=== PATIENT | male | born 1955 | race Caucasian/White ===

== ENCOUNTER 2019-06-10 04:18 | Inpatient (IN) ==
[2019-06-10] MEDS ORDERED: RAPID SEQUENCE INDUCTION BAG ONE (04:23)
[2019-06-10] MEDS ORDERED: PROPOFOL IV EMULSION 10 MG/ML 100 ML VIAL IV ONE (04:38)
[2019-06-10] MEDS ORDERED: ACETAMINOPHEN 1000 MG/100 ML IV IV ONE (05:07)
[2019-06-10] MEDS ORDERED: ACETAMINOPHEN 1,000 MG/100 ML VIAL IV STA (05:09)
[2019-06-10] MEDS ORDERED: LEVAQUIN 750 MG/150 ML IV ONE (05:10)
[2019-06-10] MEDS ORDERED: D5W IV ONE (05:10)
[2019-06-10] MEDS ORDERED: CEFEPIME 2,000 MG/20 ML VIAL ONE (05:12)
[2019-06-10] MEDS ORDERED: VANCOMYCIN HCL 1,000 MG in SODIUM CHLORIDE 0.9% 500 ML IV STA (05:14)
[2019-06-10] MEDS ORDERED: CEFEPIME 2,000 MG/20 ML VIAL IV STA (05:14)
[2019-06-10] MEDS ORDERED: VANCOMYCIN CONSULT ACTIVE PRN (05:14)
[2019-06-10] MEDS ORDERED: VANCOMYCIN HCL 1,000 MG/270 ML BAG IV STA (05:14)
[2019-06-10] MEDS ORDERED: LEVOFLOXACIN/D5W 750 MG/150 ML BAG IV SCH (05:15)
[2019-06-10 05:24] LABS: Hematocrit (blood only) 44.7 % (42-52); Hemoglobin 14.9 g/dL (14.0-18.0); Mean Corpuscular Hemoglobin 31.2 pg (25-34); Mean Corpuscular Hgb Conc 33.3 g/dL (32-36); Mean Corpuscular Volume 93.7 fL (80-100); Mean Platelet Volume 11.4 fL (7.4-10.4); Platelet Count 245 K/uL (130-400); RDW Coefficient of Variation 12.9 % (11.5-14.5); RDW Standard Deviation 44.4 fL (36.4-46.3); Red Blood Count 4.77 M/uL (4.7-6.1)
[2019-06-10 05:37] LABS: Partial Thromboplastin Time 28.2 Seconds (21.0-31.0); Prothrombin Time 10.6 Seconds (9.0-12.0)
[2019-06-10 05:46] LABS: Basophils # (auto) 0.03 K/uL (0-0.2); Basophils % (auto) 0.2 %; Eosinophils # (auto) 0.14 K/uL (0-0.5); Eosinophils % (auto) 1.1 %; Immature Granulocytes # (auto) 0.49 K/uL (0.00-0.02); Immature Granulocytes % (auto) 3.7 %; Lymphocytes # (auto) 6.21 K/uL (1.2-3.4); Lymphocytes % (auto) 47.4 %; Monocytes # (auto) 0.24 K/uL (0.11-0.59); Monocytes % (auto) 1.8 %; Neutrophils # (auto) 5.99 K/uL (1.4-6.5); Neutrophils % (auto) 45.8 %
[2019-06-10 05:52] LABS: Alanine Aminotransferase 107 U/L (12-78); Albumin Level 3.3 gm/dl (3.4-5.0); Alkaline Phosphatase 71 U/L (45-117); Aspartate Aminotransferase 223 U/L (15-37); BUN Creatinine Ratio 11.9 (10-20); Bilirubin,Total 0.5 mg/dl (0.2-1); Blood Urea Nitrogen 22 mg/dl (7-18); Calcium 7.6 mg/dl (8.5-10.1); Carbon Dioxide 18 mmol/L (21-32); Chloride 102 mmol/L (98-107); Est GFR (African American) 43.1; Est GFR (Non-African American) 37.2; Globulin 3.2 gm/dl (2.5-4.0); Glucose 464 mg/dl (70-99); Magnesium 2.7 mg/dl (1.8-2.4); Potassium 3.5 mmol/L (3.5-5.1); Sodium 137 mmol/L (136-145); Total Protein 6.5 gm/dl (6.4-8.2)
[2019-06-10] MEDS ORDERED: INSULIN REGULAR 250 UNITS in SODIUM CHLORIDE 0.9% 247.5 ML IV SCH (06:00)
[2019-06-10 06:15] LABS: Beta-Hydroxybutyrate 2.45 mg/dl (0.2-2.81)
[2019-06-10 06:20] LABS: Base Excess ABG -9.7 mEq/L (-9-1.8); HCO3 ABG 20 mmol/L (19-24); Oxygen Saturation ABG 99.8 % (90-95); PCO2 ABG 60 mmHg (35-46); PO2 ABG 321 mmHg (80-95)
[2019-06-10 06:21] LABS: Allen Test Pos (Pos)
[2019-06-10 06:22] LABS: pH ABG 7.14 (7.35-7.45)
[2019-06-10] MEDS ORDERED: STAT IV Infusion **Titration per Protocol STA (06:24)
[2019-06-10] MEDS ORDERED: SUCCINYLCHOLINE CHLORIDE 20 MG/ML 10 ML VIAL IV ONE (06:25)
[2019-06-10] MEDS ORDERED: VECURONIUM BROMIDE 10 MG VIAL IV ONE (06:25)
[2019-06-10] MEDS ORDERED: ETOMIDATE 2 MG/ML 20 ML VIAL IV ONE (06:25)
[2019-06-10] MEDS ORDERED: fentaNYL citrate 100 MCG/2 ML CARP IV ONE (06:25)
--- NOTE | 2019-06-10 06:25 | XRay Report ---
XR chest 1V portable CLINICAL HISTORY: Sepsis COMPARISON STUDY: No previous studies for comparison. FINDINGS: The tip of the endotracheal tube is 5.6 cm above the tamiko. Tip of nasogastric tube is bel ow the lower aspect of this image but at least within the body of the stomach. Tip of right internal jugular central line projects over the distal SVC. There is no pneumothorax. No pleural effusion is i dentified. Interstitial thickening and extensive bilateral airspace opacities are present. IMPRESSION: 1. Satisfactory positioning of lines and tubes. 2. Interstitial thickening and extensive bilateral airspace opacities which favor an infectious etiol ogy. Pulmonary edema could appear similar but is considered less likely. ACT 112: Negative or not required by law. Electronically signed by: Alvino Barfield M.D. 06/10/2019 6:23 AM
[2019-06-10] MEDS ORDERED: propofoL 1,000 MG/100 ML VIAL IV SCH (06:28)
[2019-06-10] MEDS ORDERED: fentaNYL citrate 100 MCG/2 ML VIAL ONE ×3 (06:39→09:38)
[2019-06-10] MEDS ORDERED: MIDAZOLAM HCL 1 MG/ML 2ML VIAL ONE ×5 (06:39→09:39)
[2019-06-10] MEDS ORDERED: NiCARDipine HCL INJ 2.5 MG/ML 10 ML AMP ONE (06:39)
[2019-06-10] MEDS ORDERED: HEPARIN (PORCINE) 1000 UNIT/ML 10 ML (CATH LAB USE ONLY) ONE ×3 (06:39→09:26)
[2019-06-10] MEDS ORDERED: NITROGLYCERIN/D5W 100MCG/ML 20ML SYR ONE (06:40)
--- NOTE | 2019-06-10 07:05 | Critical Care Consultation ---
Date of Consultation June 10, 2019 Assessment & Plan (1) Admitted to intensive care unit: Reason Critically Ill: 64-year-old male presenting to the emergency department with complaints of shortness of breath requiring emergent endotracheal intubation with significant bradycardia and hypoxia with concerns for possible COVID-19 infection with remains report of shortness of breath and cough for the past 24 to 48 hours. NEURO - * CAM ICU: Unable to assess secondary to sedation. * Sedation: Currently on Propofol. Attempt to transition to PRN pressors when in the unit if tolerated. CARDIAC/VASCULAR - * Bradycardia: * Possibly 2/2 severe hypoxia in the setting of rapid pulmonary edema and AR DS picture. * Improved heart rate with oxygenation after intubation. * Acute STEMI: * EKG status post intubation and resuscitation demonstrates acute STEMI. * Patient taken emergently to the catheterization suite. * Please refer to my attending's dictation for continued management. * Monitor on telemetry. RESPIRATORY - * Acute respiratory failure with hypoxia and hypercapnia: * Patient's only complaint on presentation was shortness of breath. Per roommate, the patient had been short of breath and with a cough for 24 to 48 hours. Apparently, the roommate had called and asked if the patient could be tested for coronavirus. * Keeping this in mind, and given current concerns for community spread in this area, patient was emergently intubated which did improve her oxygenation as well as heart rate. * Continue with aggressive arts net protocol settings pending ABGs. * Serial ABGs. GI/NUTRITION - * OG tube in place. RENAL/LYTES - * ARTUR: * Judicious use of fluids in setting of picture of volume overload versus ARDS. * IVF: - * Kennedy in place - Strict I&Os. ENDO - * Unknown history of diabetes, however patient presents hyperglycemic. * BSGs per unit protocol. ISS --> gtt per unit policy. HEME - * Stable H&H. * Leukocytosis noted. This is encouraging as we would anticipate a leukopenia and a CO VID patient. ID - * Patient covered with broad-spectrum antibiotics in the emergency department including cefepime, vancomycin, Levaquin. * May be prudent to continue pending differentiation from possible sources of pulmonary filtrates. LINES/IV ACCESS - * PIVs x1 * RIGHT IJ * RIGHT radial arterial line * Kennedy catheter. * ET tube DVT PROPHYLAXIS - * Defer until after catheterization. * SCDs I have personally spent 45 minutes of critical care time in the direct management of this patient. This is a life/limb threatening event. This includes time spent evaluating patient, direct bedside care, chart review, placing orders, interpretation of diagnostic studies, discussion with consultants, patient, and family members, as well as other required patient management activities. This time is exclusive of all separately billable procedures, and teaching time and separate from and in addition to any other critical care service time. Thank you for allowing us to participate in the care of this patient. Please refer to my attending physician's documentation for any further recommendations. (2) Acute respiratory failure with hypoxia and hypercarbia: (3) Respiratory acidosis: (4) Multifocal pneumonia: Supervising Physician Co-Signing Physician Notes I was advised of this patient by Viktoriya Jj Please refer to my documentation regarding the care of this patient. History of Present Illness History of Present Illness I was called to the emergency department by attending ER physician as patient presented acutely hypoxic and bradycardic. Per historical information, the patient's remained had contacted the hospital yesterday and asked "for a test for the virus." He had worsening shortness of breath and cough and was brought to the emergency department where he was significantly hypoxic and bradycardic. A CODE BLUE was initially called as the patient did significantly bradycardia down and was near arrest. He was successfully intubated by emergency department physician, however he did require replacement tube secondary to a rupture in the cuff. Central line and arterial lines were placed. Patient accepted to ICU for admission for further evaluation and management. Patient History Social History Feels Safe at Home: Yes Smoking Status: Never smoker Review of Systems Review of Systems: Unobtainable due to cognitive status Physical Exam Physical Exam: VITAL SIGNS - Vital signs and nursing notes were reviewed. GENERAL - 64-year-old male stated age. Intubated and sedated. HEAD - NC/AT. EYES - PERRL with EOMI bilaterally. Sclera anicteric. Palpebral conjunctiva pink and moist with no injection noted. EARS - No deformities of external structures noted on gross examination bilaterally. NOSE - Midline and without cyanosis. No epistaxis or purulent drainage noted. MOUTH/OROPHARYNX - ET Tube in place. Without perioral cyanosis. Buccal mucosa pink and moist and without leukoplakia. NECK - Supple to palpation. LUNGS - Chest wall symmetric without accessory muscle use, intercostals retractions, or central cyanosis. Normal vesicular breath sounds CTA B/L. No wheezes, rales, or rhonchi appreciated. CARDIAC - RRR with S1/S2. No murmur, rubs, or gallops appreciated. ABDOMEN - Abdominal contour flat without pulsations or visible masses. BS normoactive all four quadrants. No tenderness, palpable masses, hepatosplenomegaly, or ascites noted. EXTREMITIES - No clubbing or peripheral cyanosis. No pretibial edema present. +3/5 radial and dorsalis pedis pulses palpated throughout. NEUROLOGIC - No focal neurological deficits. Unable to fully assess secondary to state of sedation. Results & Data Results & Data ([facility]) Vital Signs (Past 12 Hours) Vital Signs Pulse Resp BP Pulse Ox 06/10/19 06:48 100 H 26 H 151/118 H 98 06/10/19 06:45 100 H 26 H 151/113 H 98 06/10/19 06:31 106 H 27 H 99 06/10/19 06:30 105 H 24 146/114 H 99 06/10/19 06:15 111 H 20 166/124 H 99 06/10/19 06:01 115 H 20 99 06/10/19 06:00 117 H 20 176/127 H 99 06/10/19 05:45 115 H 20 167/122 H 99 06/10/19 05:31 123 H 97 06/10/19 05:30 123 H 23 168/122 H 99 06/10/19 05:15 114 H 20 159/119 H 97 06/10/19 05:00 62 15 145/86 H 95 06/10/19 04:58 49 L 16 119/75 88 L 06/10/19 04:55 67 22 97 06/10/19 04:49 48 L 24 139/61 86 L 06/10/19 04:30 41 L 19 75 L 06/10/19 04:29 56 L 31 H 75 L 06/10/19 04:27 54 L 29 H 77 L 06/10/19 04:21 50 L 30 H 122/80 71 L Coding Level of Care Code Critical Care 1st 30-74 mins Diagnoses Admitted to intensive care unit Z78.9 Acute respiratory failure with hypoxia and hypercarbia J96.01; J96.02 Respiratory acidosis E87.2 Multifocal pneumonia J18.9 Time Spent (min) 45
--- NOTE | 2019-06-10 07:07 | Procedure Note ---
Procedure Note Date of Service June 10, 2019 Procedure: Internal Jugular Central Line Placement Attending: Dr. Wayne APC: Beto Jj PA-C Indication: Central Drug Administration, Poor Venous Access, Multiple Lab Draws Necessary, etc. Anesthesia: Lidocaine 1% Emergent consent implied in the setting of poor peripheral access and need for ongoing management in the respiratory failure patient with concerns for possible COVID-19. A time-out was completed verifying correct patient, procedure, site, positioning, and implants(s) or special equipment if applicable. Patients RIGHT Neck was cleansed and draped in the typical sterile fashion using Chloraprep. The Internal Jugular Vein and Carotid Artery were identified using ultrasound. The superficial tissue was anesthetized using 3.0 mL of 1% lidocaine without epinephrine under direct visualization with the ultrasound. After adequate anesthetization was achieved, the Internal Jugular vein was cannulated under direct ultrasound guidance using an introducer needle on a syringe. Good venous blood return was maintained prior to removal of syringe from introducer needle. Using Seldinger Technique, a guide wire was advanced through the introducer needle without resistance. The introducer needle was removed and ultrasound images were obtained of the guide wire within the Internal Jugular Vein and saved to the patients medical record. The dilator was advanced to the vessel without resistance. The dilator was exchanged for the triple lumen catheter which was advanced into the vessel without resistance. The guide wire was removed intact from the catheter without issue. Claves were placed on each catheter tip with confirmation of good blood flow from each lumen. Each port was easily flushed with sterile saline. The catheter was placed at 16 cm and sut[address] in place. BioPatch was applied to the catheter and a sterile Tegaderm dressing was applied over the catheter with careful attention to sterility. Patient tolerated procedure well. No immediate complications were met. Post procedure x-ray was completed, placement was appropriate and no pneumothorax was noted. Images obtained are saved for permanent record Procedural Ultrasound Guidance: Procedure Date: 06/10/2019 Indication: Poor peripheral access, multiple medications Attending: Dr. Chatman APC: Beto Jj PA-C Artery AND Vein visualized: YES Compressible Vein: YES Guidewire or Short Catheter seen in vein prior to dilation: YES Line confirmed in Vein with ultrasound: YES Images obtained are saved for permanent record. Coding CPT Codes Tubes, Drains, and Vasc Access - Tubes, Drains, and Vasc Access: [id number] Place catheter in vein superior or inferior vena cava ([id number]) Tubes, Drains, and Vasc Access - Tubes, Drains, and Vasc Access: [id number] Ultrasound Guidance For Vascular ([id number]) [facility] [place] Procedure Codes (Charges) Tubes, Drains, and Vasc Access Procedure 1: Tubes, Drains, and Vasc Access: [id number] Place catheter in vein superior or inferior vena cava Procedure 2: Tubes, Drains, and Vasc Access: [id number] Ultrasound Guidance For Vascular
[2019-06-10 07:08] LABS: Influenza A virus by PCR Neg for Influ A (Neg); Influenza B virus by PCR Neg for Influ B (Neg)
--- NOTE | 2019-06-10 07:11 | Procedure Note ---
Procedure Note Date of Service June 10, 2019 Procedure: Arterial Line Placement Attending: Dr. Chatman APC: Beto Jj PA-C Indication: Monitoring on Pressors Anesthesia: None Emergent consent implied in the setting of poor and high BP readings and need for frequent blood pressure monitoring, frequent lab draws, etc. A time-out was completed verifying correct patient, procedure, site, positioning, and implant(s) or special equipment if applicable. Allens test was performed to ensure adequate perfusion. Patients RIGHT wrist was prepped and draped in the usual sterile fashion. Ultrasound guidance was used to aid needle placement. A 20g Arrow arterial line was introduced into the RIGHT Radial artery. Catheter was threaded, and the needle was removed with appropriate blood return. Good waveform was observed. The patient tolerated the procedure well. Confirmation of placement with ultrasound. Blood Loss: Minimal Complications: None Procedural Ultrasound Guidance: Procedure Date: 06/10/2019 Indication: ABGs, Frequent lab draws, Pressure monitoring Attending: Dr. Chatman APC: Beto Jj PA-C Artery Identified: YES Line confirmed in Artery with ultrasound: YES Complications: NONE Patient tolerated procedure: WELL Coding CPT Codes Tubes, Drains, and Vasc Access - Tubes, Drains, and Vasc Access: [id number] Place Catheter In Artery ([id number]) [facility] [place] Codes (Charges) Tubes, Drains, and Vasc Access Procedure 3: Tubes, Drains, and Vasc Access: [id number] Place Catheter In Artery
--- NOTE | 2019-06-10 07:15 | Emergency Department Note ---
History of Present Illness General Chief complaint: Shortness of Breath/Dyspnea Stated complaint: COUGH,SOB Time Seen by Provider: 06/10/19 04:20 Source: patient, RN notes reviewed, old records reviewed and other (roommate) Mode of arrival: ambulatory Limitations: altered mental status and physical limitation History of Present Illness Provider complaint: Shortness of breath Onset (ago): hour(s) 2 Maximum Pain Intensity: 8 Current Pain Intensity: 8 Quality: + aching Relieved By: + none Exacerbated By: + none This is a 64-year-old male who was brought in by the emergency department by his roommate. Upon arrival to the emergency department the patient is unable to talk and is gasping for air. He has hypoxic with his O2 sat at 68. He is gasping for air and asking for help. Spoke with daughter Chandrika ([place]) [phone] Past Med/Surg History Social History Feels Safe at Home: Yes Smoking Status: Never smoker Review of Systems A total of 10 systems reviewed and were otherwise negative Physical Exam Vital Signs Vital Signs - 24 hr 06/10/19 04:21 06/10/19 04:27 06/10/19 04:29 Rectal Temperature - Monitor Source 2 Pulse Rate 50 L 54 L 56 L Pulse Rate from SpO2 Sensor 55 L Respiratory Rate 30 H 29 H 31 H Respiratory Effort / Characteristics Gasping/Agonal Labored Respiratory Depth Shallow Blood Pressure 122/80 Blood Pressure Mean 94 137 Pulse Oximetry 71 L 77 L 75 L Oxygen Delivery Method Room Air Mechanical Vent Mechanical Vent Fraction of Inspired Oxygen 100 100 Sepsis Recent Fever Within 48 Hours No Sepsis New/Unexplained Change in Mental Status No Sepsis Action Taken by Nursing No Action Required 06/10/19 04:30 06/10/19 04:49 06/10/19 04:55 Rectal Temperature - Monitor Source 2 35.5 C L Pulse Rate 41 L 48 L 67 Pulse Rate from SpO2 Sensor Respiratory Rate 19 24 22 Respiratory Effort / Characteristics Respiratory Depth Blood Pressure 139/61 Blood Pressure Mean 66 Pulse Oximetry 75 L 86 L 97 Oxygen Delivery Method Mechanical Vent Mechanical Vent Fraction of Inspired Oxygen 100 100 100 Sepsis Recent Fever Within 48 Hours Sepsis New/Unexplained Change in Mental Status Sepsis Action Taken by Nursing 06/10/19 04:58 06/10/19 05:00 04/03/20 05:15 Rectal Temperature - Monitor Source 2 36.0 C L 36.1 C L 36.2 C L Pulse Rate 49 L 62 114 H Pulse Rate from SpO2 Sensor 117 H Respiratory Rate 16 15 20 Respiratory Effort / Characteristics Respiratory Depth Blood Pressure 119/75 145/86 H 159/119 H Blood Pressure Mean 86 90 123 Pulse Oximetry 88 L 95 97 Oxygen Delivery Method Mechanical Vent Mechanical Vent Mechanical Vent Fraction of Inspired Oxygen 100 100 100 Sepsis Recent Fever Within 48 Hours Sepsis New/Unexplained Change in Mental Status Sepsis Action Taken by Nursing 06/10/19 05:30 06/10/19 05:31 06/10/19 05:45 Rectal Temperature - Monitor Source 2 35.2 C L 35.2 C L 35.4 C L Pulse Rate 123 H 123 H 115 H Pulse Rate from SpO2 Sensor 125 H 123 H 117 H Respiratory Rate 23 20 Respiratory Effort / Characteristics Respiratory Depth Blood Pressure 168/122 H 167/122 H Blood Pressure Mean 134 132 Pulse Oximetry 99 97 99 Oxygen Delivery Method Mechanical Vent Mechanical Vent Mechanical Vent Fraction of Inspired Oxygen 100 100 100 Sepsis Recent Fever Within 48 Hours Sepsis New/Unexplained Change in Mental Status Sepsis Action Taken by Nursing 06/10/19 06:00 06/10/19 06:01 06/10/19 06:15 Rectal Temperature - Monitor Source 2 35.5 C L 35.5 C L 35.8 C L Pulse Rate 117 H 115 H 111 H Pulse Rate from SpO2 Sensor 117 H 115 H 111 H Respiratory Rate 20 20 20 Respiratory Effort / Characteristics Respiratory Depth Blood Pressure 176/127 H 166/124 H Blood Pressure Mean 141 138 Pulse Oximetry 99 99 99 Oxygen Delivery Method Mechanical Vent Mechanical Vent Fraction of Inspired Oxygen 100 100 Sepsis Recent Fever Within 48 Hours Sepsis New/Unexplained Change in Mental Status Sepsis Action Taken by Nursing 06/10/19 06:30 06/10/19 06:31 06/10/19 06:43 Rectal Temperature - Monitor Source 2 35.8 C L 35.8 C L Pulse Rate 105 H 106 H Pulse Rate from SpO2 Sensor 106 H 106 H Respiratory Rate 24 27 H Respiratory Effort / Characteristics Respiratory Depth Blood Pressure 146/114 H Blood Pressure Mean 122 Pulse Oximetry 99 99 Oxygen Delivery Method Mechanical Vent Fraction of Inspired Oxygen Sepsis Recent Fever Within 48 Hours Sepsis New/Unexplained Change in Mental Status Sepsis Action Taken by Nursing 06/10/19 06:45 06/10/19 06:48 06/10/19 07:06 Rectal Temperature - Monitor Source 2 35.9 C L 35.9 C L Pulse Rate 100 H 100 H 112 H Pulse Rate from SpO2 Sensor 100 H 99 H Respiratory Rate 26 H 26 H 20 Respiratory Effort / Characteristics Respiratory Depth Blood Pressure 151/113 H 151/118 H 185/115 H Blood Pressure Mean 122 127 Pulse Oximetry 98 98 95 Oxygen Delivery Method Mechanical Vent Fraction of Inspired Oxygen Sepsis Recent Fever Within 48 Hours Sepsis New/Unexplained Change in Mental Status Sepsis Action Taken by Nursing GENERAL: Patient is a ill-appearing male in acute distress, mottled in appearance HEAD: Normocephalic atraumatic EYES: Ocular movements intact pupils equal and react to light OROPHARYNX mucous membranes are moist no exudates present no erythema or edema present NECK: Supple no nuchal rigidity CHEST: Good equal expansion LUNGS: diffuse crackles bilat CARDIAC: Normal S1 and S2 ABDOMEN: Soft nontender no guarding BACK: No CVA tenderness EXTREMITIES: No pain upon palpation normal muscle strength in all groups no clubbing cyanosis or edema NEURO: Pt unable to answer questions Procedures Intubation Time out performed: Yes sedative: Etomidate (20) Mg Given: 20 paralytic: Succinylcholine Mg Given: 200 Laryngoscope: fiber optic video scope ET Tube Size: 7.5 ET Tube Uncuffed: Yes Tube Secured Depth (cm): 24 Tube Secured Location: lips Tube Placement Confirmation: visualized tube passing through cords, equal breath sounds bilaterally, no breath sounds over epigastrium and confirmation by capnometry Patient Tolerated Procedure: well and no complications Additional Comments: I performed the procedure; immediate improvement in symptoms Course Administered Medications Levofloxacin/Dextrose (Levaquin/D5w) 750 mg in 150 mls @ 100 mls/hr IV Q24H [facility] Stop: 06/17/19 05:14 Last Admin: 06/10/19 05:20 Dose: 100 mls/hr Documented by: [id number] Discontinued Medications Acetaminophen (Ofirmev) Confirm Administered Dose 1,000 mg IV .STK-MED ONE Stop: 06/10/19 05:08 Last Admin: 06/10/19 06:21 Dose: Not Given Documented by: [id number] Cefepime HCl (Maxipime) Confirm Administered Dose 2,000 mg .ROUTE .STK-MED ONE Stop: 06/10/19 05:13 Last Admin: 06/10/19 06:21 Dose: Not Given Documented by: [id number] Acetaminophen (Ofirmev) 1,000 mg in 100 mls @ 400 mls/hr IV NOW STA Stop: 06/10/19 05:23 Last Infusion: 06/10/19 05:25 Dose: 0 mls/hr Documented by: [id number] Admin: 06/10/19 05:10 Dose: 400 mls/hr Documented by: [id number] Vancomycin HCl 1,000 mg/ (Sodium Chloride) 520 mls @ 125 mls/hr IV NOW STA Stop: 06/10/19 09:23 Last Admin: 06/10/19 05:20 Dose: 125 mls/hr Documented by: [id number] Vancomycin HCl (Vancomycin Hcl) 1,000 mg in 270 mls @ 125 mls/hr IV NOW STA; Protocol Stop: 06/10/19 07:23 Last Admin: 06/10/19 06:32 Dose: 125 mls/hr Documented by: [id number] Cefepime HCl (Maxipime) 2,000 mg in 20 mls @ 5 mls/min IV NOW STA; Protocol Stop: 06/10/19 05:17 Last Admin: 06/10/19 05:20 Dose: 5 mls/min Documented by: [id number] Levofloxacin/Dextrose (Levaquin/D5w) Confirm Administered Dose 750 mg IV .STK- MED ONE Stop: 06/10/19 05:11 Last Admin: 06/10/19 06:21 Dose: Not Given Documented by: [id number] Miscellaneous () Confirm Administered Dose 1 ea .ROUTE .STK-MED ONE Stop: 06/10/19 04:24 Last Admin: 06/10/19 06:32 Dose: 1 ea Documented by: [id number] Propofol (Diprivan) Confirm Administered Dose 1,000 mg IV .STK-MED ONE Stop: 06/10/19 04:39 Last Admin: 06/10/19 06:21 Dose: Not Given Documented by: [id number] Critical Care Time I have personally spent greater than 90 minutes of critical care time in the direct management of this patient. This includes bedside care, interpretation of diagnostic studies, and testing, discussion with consultants, patient, and family members, and other required patient management activities. This 90 minutes is in excess of all separately billable procedures. Medical Decision Making Differential Diagnosis Sepsis, UTI, pneumonia, metabolic, electrolyte abnormalities, cardiac sources, intracerebral event, toxicologic, neurologic, as well as other pathologies. Medical Records Attestation: I reviewed the patient's medical records. Home Medications Current Medication List: was personally reviewed by me Laboratory Data Attestation: I reviewed the patient's lab results. Result diagrams: 06/10/19 05:15 06/10/19 05:15 Lab Results 06/10/19 06/10/19 06/10/19 Range/Units 05:15 05:15 05:15 WBC 13.10 H (4.8-10.8) K/uL RBC 4.77 (4.7-6.1) M/uL Hgb 14.9 (14.0-18.0) g/dL POC Hgb (14.0-18.0) g/dl Hct 44.7 (42-52) % POC Hct (42-52) % MCV 93.7 (80-100) fL MCH 31.2 (25-34) pg MCHC 33.3 (32-36) g/dL RDW Std Deviation 44.4 (36.4-46.3) fL RDW Coeff of Garret 12.9 (11.5-14.5) % Plt Count 245 (130-400) K/uL MPV 11.4 H (7.4-10.4) fL Immature Gran % (Auto) 3.7 % Neut % (Auto) 45.8 % Lymph % (Auto) 47.4 % Surry % (Auto) 1.8 % Eos % (Auto) 1.1 % Baso % (Auto) 0.2 % Immature Gran # (Auto) 0.49 H (0.00-0.02) K/uL Neut # (Auto) 5.99 (1.4-6.5) K/uL Lymph # (Auto) 6.21 H (1.2-3.4) K/uL Surry # (Auto) 0.24 (0.11-0.59) K/uL Eos # (Auto) 0.14 (0-0.5) K/uL Baso # (Auto) 0.03 (0-0.2) K/uL Blood Smear Review PT 10.6 (9.0-12.0) Seconds INR 1.0 (0.9-1.1) APTT 28.2 (21.0-31.0) Seconds PTT Ratio 1.0 Activ Coag Time Kaolin (94-140) SECONDS POC pH (7.35-7.45) POC pCO2 (35-46) mmHg POC pO2 (80-95) mmHg POC HCO3 (19-24) jerri/L POC Total CO2 (24-31) mmol/L POC Base Excess (-9-1.8) jerri/L ABG pH (7.35-7.45) ABG pCO2 (35-46) mmHg ABG pO2 (80-95) mmHg ABG HCO3 (19-24) mmol/L ABG O2 Saturation (90-95) % ABG Base Excess (-9-1.8) mEq/L Leonardo Test (Pos) VBG pH (7.36-7.41) Barometric Pressure mm/Hg Oxygen Given POC Sodium (135-144) mmol/L Sodium 137 (136-145) mmol/L POC Potassium (3.3-5.0) mmol/L Potassium 3.5 (3.5-5.1) mmol/L Chloride 102 (98-107) mmol/L Carbon Dioxide 18 L (21-32) mmol/L Anion Gap 17.0 H (3-11) BUN 22 H (7-18) mg/dl Creatinine 1.88 H (0.6-1.4) mg/dl Est Cr Clr Drug Dosing Not Reportable Est GFR ( Amer) 43.1 Est GFR (Non-Af Amer) 37.2 BUN/Creatinine Ratio 11.9 (10-20) Glucose 464 H* (70-99) mg/dl Lactate (0.4-2.0) mmol/L Calcium 7.6 L (8.5-10.1) mg/dl Phosphorus (2.5-4.9) mg/dl Magnesium 2.7 H (1.8-2.4) mg/dl Total Bilirubin 0.5 (0.2-1) mg/dl AST 223 H (15-37) U/L ALT 107 H (12-78) U/L Alkaline Phosphatase 71 (45-117) U/L Troponin I 5.430 H* (0-0.045) ng/ml Total Protein 6.5 (6.4-8.2) gm/dl Albumin 3.3 L (3.4-5.0) gm/dl Globulin 3.2 (2.5-4.0) gm/dl Albumin/Globulin Ratio 1.0 (0.9-2) Beta-Hydroxybutyric Acd 2.45 (0.2-2.81) mg/dl Procalcitonin (0-0.5) ng/ml Adenovirus (PCR) (NotDetected) B. pertussis DNA (PCR) (NotDetected) B.parapertussis DNA PCR (NotDetected) C. pneumoniae DNA (PCR) (NotDetected) Coronavirus OC43 (PCR) (NotDetected) Coronavirus HKU1 (PCR) (NotDetected) Coronavirus 229E (PCR) (NotDetected) Coronavirus NL63 (PCR) (NotDetected) Human Metapneumovir PCR (NotDetected) Influenza Type A (PCR) (NotDetected) Influenza Type B (PCR) (NotDetected) M. pneumoniae (PCR) (NotDetected) Parainfluenza 1 (PCR) (NotDetected) Parainfluenza 2 (PCR) (NotDetected) Parainfluenza 3 (PCR) (NotDetected) Parainfluenza 4 (PCR) (NotDetected) RSV (PCR) (NotDetected) Entero/Rhino (PCR) (NotDetected) 06/10/19 06/10/19 06/10/19 Range/Units 05:15 05:15 05:15 WBC (4.8-10.8) K/uL RBC (4.7-6.1) M/uL Hgb (14.0-18.0) g/dL POC Hgb (14.0-18.0) g/dl Hct (42-52) % POC Hct (42-52) % MCV (80-100) fL MCH (25-34) pg MCHC (32-36) g/dL RDW Std Deviation (36.4-46.3) fL RDW Coeff of Garret (11.5-14.5) % Plt Count (130-400) K/uL MPV (7.4-10.4) fL Immature Gran % (Auto) % Neut % (Auto) % Lymph % (Auto) % Surry % (Auto) % Eos % (Auto) % Baso % (Auto) % Immature Gran # (Auto) (0.00-0.02) K/uL Neut # (Auto) (1.4-6.5) K/uL Lymph # (Auto) (1.2-3.4) K/uL Surry # (Auto) (0.11-0.59) K/uL Eos # (Auto) (0-0.5) K/uL Baso # (Auto) (0-0.2) K/uL Blood Smear Review PT (9.0-12.0) Seconds INR (0.9-1.1) APTT (21.0-31.0) Seconds PTT Ratio Activ Coag Time Kaolin (94-140) SECONDS POC pH (7.35-7.45) POC pCO2 (35-46) mmHg POC pO2 (80-95) mmHg POC HCO3 (19-24) jerri/L POC Total CO2 (24-31) mmol/L POC Base Excess (-9-1.8) jerri/L ABG pH (7.35-7.45) ABG pCO2 (35-46) mmHg ABG pO2 (80-95) mmHg ABG HCO3 (19-24) mmol/L ABG O2 Saturation (90-95) % ABG Base Excess (-9-1.8) mEq/L Leonardo Test (Pos) VBG pH (7.36-7.41) Barometric Pressure mm/Hg Oxygen Given POC Sodium (135-144) mmol/L Sodium (136-145) mmol/L POC Potassium (3.3-5.0) mmol/L Potassium (3.5-5.1) mmol/L Chloride (98-107) mmol/L Carbon Dioxide (21-32) mmol/L Anion Gap (3-11) BUN (7-18) mg/dl Creatinine (0.6-1.4) mg/dl Est Cr Clr Drug Dosing Est GFR ( Amer) Est GFR (Non-Af Amer) BUN/Creatinine Ratio (10-20) Glucose (70-99) mg/dl Lactate 9.3 H* (0.4-2.0) mmol/L Calcium (8.5-10.1) mg/dl Phosphorus 8.5 H (2.5-4.9) mg/dl Magnesium (1.8-2.4) mg/dl Total Bilirubin (0.2-1) mg/dl AST (15-37) U/L ALT (12-78) U/L Alkaline Phosphatase (45-117) U/L Troponin I (0-0.045) ng/ml Total Protein (6.4-8.2) gm/dl Albumin (3.4-5.0) gm/dl Globulin (2.5-4.0) gm/dl Albumin/Globulin Ratio (0.9-2) Beta-Hydroxybutyric Acd (0.2-2.81) mg/dl Procalcitonin 0.05 (0-0.5) ng/ml Adenovirus (PCR) (NotDetected) B. pertussis DNA (PCR) (NotDetected) B.parapertussis DNA PCR (NotDetected) C. pneumoniae DNA (PCR) (NotDetected) Coronavirus OC43 (PCR) (NotDetected) Coronavirus HKU1 (PCR) (NotDetected) Coronavirus 229E (PCR) (NotDetected) Coronavirus NL63 (PCR) (NotDetected) Human Metapneumovir PCR (NotDetected) Influenza Type A (PCR) (NotDetected) Influenza Type B (PCR) (NotDetected) M. pneumoniae (PCR) (NotDetected) Parainfluenza 1 (PCR) (NotDetected) Parainfluenza 2 (PCR) (NotDetected) Parainfluenza 3 (PCR) (NotDetected) Parainfluenza 4 (PCR) (NotDetected) RSV (PCR) (NotDetected) Entero/Rhino (PCR) (NotDetected) 06/10/19 06/10/19 06/10/19 Range/Units 05:15 05:30 06:22 WBC (4.8-10.8) K/uL RBC (4.7-6.1) M/uL Hgb (14.0-18.0) g/dL POC Hgb (14.0-18.0) g/dl Hct (42-52) % POC Hct (42-52) % MCV (80-100) fL MCH (25-34) pg MCHC (32-36) g/dL RDW Std Deviation (36.4-46.3) fL RDW Coeff of Garret (11.5-14.5) % Plt Count (130-400) K/uL MPV (7.4-10.4) fL Immature Gran % (Auto) % Neut % (Auto) % Lymph % (Auto) % Surry % (Auto) % Eos % (Auto) % Baso % (Auto) % Immature Gran # (Auto) (0.00-0.02) K/uL Neut # (Auto) (1.4-6.5) K/uL Lymph # (Auto) (1.2-3.4) K/uL Surry # (Auto) (0.11-0.59) K/uL Eos # (Auto) (0-0.5) K/uL Baso # (Auto) (0-0.2) K/uL Blood Smear Review PT (9.0-12.0) Seconds INR (0.9-1.1) APTT (21.0-31.0) Seconds PTT Ratio Activ Coag Time Kaolin (94-140) SECONDS POC pH (7.35-7.45) POC pCO2 (35-46) mmHg POC pO2 (80-95) mmHg POC HCO3 (19-24) jerri/L POC Total CO2 (24-31) mmol/L POC Base Excess (-9-1.8) jerri/L ABG pH 7.14 L* (7.35-7.45) ABG pCO2 60 H (35-46) mmHg ABG pO2 321 H (80-95) mmHg ABG HCO3 20 (19-24) mmol/L ABG O2 Saturation 99.8 H (90-95) % ABG Base Excess -9.7 L (-9-1.8) mEq/L Leonardo Test Pos (Pos) VBG pH 7.08 L (7.36-7.41) Barometric Pressure 728.4 mm/Hg Oxygen Given 100% POC Sodium (135-144) mmol/L Sodium (136-145) mmol/L POC Potassium (3.3-5.0) mmol/L Potassium (3.5-5.1) mmol/L Chloride (98-107) mmol/L Carbon Dioxide (21-32) mmol/L Anion Gap (3-11) BUN (7-18) mg/dl Creatinine (0.6-1.4) mg/dl Est Cr Clr Drug Dosing Est GFR ( Amer) Est GFR (Non-Af Amer) BUN/Creatinine Ratio (10-20) Glucose (70-99) mg/dl Lactate (0.4-2.0) mmol/L Calcium (8.5-10.1) mg/dl Phosphorus (2.5-4.9) mg/dl Magnesium (1.8-2.4) mg/dl Total Bilirubin (0.2-1) mg/dl AST (15-37) U/L ALT (12-78) U/L Alkaline Phosphatase (45-117) U/L Troponin I (0-0.045) ng/ml Total Protein (6.4-8.2) gm/dl Albumin (3.4-5.0) gm/dl Globulin (2.5-4.0) gm/dl Albumin/Globulin Ratio (0.9-2) Beta-Hydroxybutyric Acd (0.2-2.81) mg/dl Procalcitonin (0-0.5) ng/ml Adenovirus (PCR) Not Detected (NotDetected) B. pertussis DNA (PCR) Not Detected (NotDetected) B.parapertussis DNA PCR Not Detected (NotDetected) C. pneumoniae DNA (PCR) Not Detected (NotDetected) Coronavirus OC43 (PCR) Not Detected (NotDetected) Coronavirus HKU1 (PCR) Not Detected (NotDetected) Coronavirus 229E (PCR) Not Detected (NotDetected) Coronavirus NL63 (PCR) Not Detected (NotDetected) Human Metapneumovir PCR Not Detected (NotDetected) Influenza Type A (PCR) Not Detected (NotDetected) Influenza Type B (PCR) Not Detected (NotDetected) M. pneumoniae (PCR) Not Detected (NotDetected) Parainfluenza 1 (PCR) Not Detected (NotDetected) Parainfluenza 2 (PCR) Not Detected (NotDetected) Parainfluenza 3 (PCR) Not Detected (NotDetected) Parainfluenza 4 (PCR) Not Detected (NotDetected) RSV (PCR) Not Detected (NotDetected) Entero/Rhino (PCR) Not Detected (NotDetected) 06/10/19 06/10/19 06/10/19 Range/Units 06:22 07:36 07:48 WBC (4.8-10.8) K/uL RBC (4.7-6.1) M/uL Hgb (14.0-18.0) g/dL POC Hgb 15.3 (14.0-18.0) g/dl Hct (42-52) % POC Hct 45 (42-52) % MCV (80-100) fL MCH (25-34) pg MCHC (32-36) g/dL RDW Std Deviation (36.4-46.3) fL RDW Coeff of Garret (11.5-14.5) % Plt Count (130-400) K/uL MPV (7.4-10.4) fL Immature Gran % (Auto) % Neut % (Auto) % Lymph % (Auto) % Surry % (Auto) % Eos % (Auto) % Baso % (Auto) % Immature Gran # (Auto) (0.00-0.02) K/uL Neut # (Auto) (1.4-6.5) K/uL Lymph # (Auto) (1.2-3.4) K/uL Surry # (Auto) (0.11-0.59) K/uL Eos # (Auto) (0-0.5) K/uL Baso # (Auto) (0-0.2) K/uL Blood Smear Review PT (9.0-12.0) Seconds INR (0.9-1.1) APTT (21.0-31.0) Seconds PTT Ratio Activ Coag Time Kaolin 246 H (94-140) SECONDS POC pH 7.27 L (7.35-7.45) POC pCO2 49 H (35-46) mmHg POC pO2 263 H (80-95) mmHg POC HCO3 22 (19-24) jerri/L POC Total CO2 24 (24-31) mmol/L POC Base Excess -5.0 (-9-1.8) jerri/L ABG pH (7.35-7.45) ABG pCO2 (35-46) mmHg ABG pO2 (80-95) mmHg ABG HCO3 (19-24) mmol/L ABG O2 Saturation (90-95) % ABG Base Excess (-9-1.8) mEq/L Leonardo Test (Pos) VBG pH (7.36-7.41) Barometric Pressure mm/Hg Oxygen Given POC Sodium 140 (135-144) mmol/L Sodium (136-145) mmol/L POC Potassium 3.0 L (3.3-5.0) mmol/L Potassium (3.5-5.1) mmol/L Chloride (98-107) mmol/L Carbon Dioxide (21-32) mmol/L Anion Gap (3-11) BUN (7-18) mg/dl Creatinine (0.6-1.4) mg/dl Est Cr Clr Drug Dosing Est GFR ( Amer) Est GFR (Non-Af Amer) BUN/Creatinine Ratio (10-20) Glucose (70-99) mg/dl Lactate (0.4-2.0) mmol/L Calcium (8.5-10.1) mg/dl Phosphorus (2.5-4.9) mg/dl Magnesium (1.8-2.4) mg/dl Total Bilirubin (0.2-1) mg/dl AST (15-37) U/L ALT (12-78) U/L Alkaline Phosphatase (45-117) U/L Troponin I (0-0.045) ng/ml Total Protein (6.4-8.2) gm/dl Albumin (3.4-5.0) gm/dl Globulin (2.5-4.0) gm/dl Albumin/Globulin Ratio (0.9-2) Beta-Hydroxybutyric Acd (0.2-2.81) mg/dl Procalcitonin (0-0.5) ng/ml Adenovirus (PCR) (NotDetected) B. pertussis DNA (PCR) (NotDetected) B.parapertussis DNA PCR (NotDetected) C. pneumoniae DNA (PCR) (NotDetected) Coronavirus OC43 (PCR) (NotDetected) Coronavirus HKU1 (PCR) (NotDetected) Coronavirus 229E (PCR) (NotDetected) Coronavirus NL63 (PCR) (NotDetected) Human Metapneumovir PCR (NotDetected) Influenza Type A (PCR) Neg for Influ A (NotDetected) Influenza Type B (PCR) Neg for Influ B (NotDetected) M. pneumoniae (PCR) (NotDetected) Parainfluenza 1 (PCR) (NotDetected) Parainfluenza 2 (PCR) (NotDetected) Parainfluenza 3 (PCR) (NotDetected) Parainfluenza 4 (PCR) (NotDetected) RSV (PCR) (NotDetected) Entero/Rhino (PCR) (NotDetected) 06/10/19 06/10/19 06/10/19 Range/Units 08:04 08:04 08:27 WBC (4.8-10.8) K/uL RBC (4.7-6.1) M/uL Hgb (14.0-18.0) g/dL POC Hgb 13.3 L 13.6 L (14.0-18.0) g/dl Hct (42-52) % POC Hct 39 L 40 L (42-52) % MCV (80-100) fL MCH (25-34) pg MCHC (32-36) g/dL RDW Std Deviation (36.4-46.3) fL RDW Coeff of Garret (11.5-14.5) % Plt Count (130-400) K/uL MPV (7.4-10.4) fL Immature Gran % (Auto) % Neut % (Auto) % Lymph % (Auto) % Surry % (Auto) % Eos % (Auto) % Baso % (Auto) % Immature Gran # (Auto) (0.00-0.02) K/uL Neut # (Auto) (1.4-6.5) K/uL Lymph # (Auto) (1.2-3.4) K/uL Surry # (Auto) (0.11-0.59) K/uL Eos # (Auto) (0-0.5) K/uL Baso # (Auto) (0-0.2) K/uL Blood Smear Review PT (9.0-12.0) Seconds INR (0.9-1.1) APTT (21.0-31.0) Seconds PTT Ratio Activ Coag Time Kaolin 296 H (94-140) SECONDS POC pH 7.26 L 7.30 L (7.35-7.45) POC pCO2 53 H 47 H (35-46) mmHg POC pO2 72 L 54 L (80-95) mmHg POC HCO3 24 23 (19-24) jerri/L POC Total CO2 26 25 (24-31) mmol/L POC Base Excess -3.0 -3.0 (-9-1.8) jerri/L ABG pH (7.35-7.45) ABG pCO2 (35-46) mmHg ABG pO2 (80-95) mmHg ABG HCO3 (19-24) mmol/L ABG O2 Saturation (90-95) % ABG Base Excess (-9-1.8) mEq/L Leonardo Test (Pos) VBG pH (7.36-7.41) Barometric Pressure mm/Hg Oxygen Given POC Sodium 138 141 (135-144) mmol/L Sodium (136-145) mmol/L POC Potassium 2.9 L 3.3 (3.3-5.0) mmol/L Potassium (3.5-5.1) mmol/L Chloride (98-107) mmol/L Carbon Dioxide (21-32) mmol/L Anion Gap (3-11) BUN (7-18) mg/dl Creatinine (0.6-1.4) mg/dl Est Cr Clr Drug Dosing Est GFR ( Amer) Est GFR (Non-Af Amer) BUN/Creatinine Ratio (10-20) Glucose (70-99) mg/dl Lactate (0.4-2.0) mmol/L Calcium (8.5-10.1) mg/dl Phosphorus (2.5-4.9) mg/dl Magnesium (1.8-2.4) mg/dl Total Bilirubin (0.2-1) mg/dl AST (15-37) U/L ALT (12-78) U/L Alkaline Phosphatase (45-117) U/L Troponin I (0-0.045) ng/ml Total Protein (6.4-8.2) gm/dl Albumin (3.4-5.0) gm/dl Globulin (2.5-4.0) gm/dl Albumin/Globulin Ratio (0.9-2) Beta-Hydroxybutyric Acd (0.2-2.81) mg/dl Procalcitonin (0-0.5) ng/ml Adenovirus (PCR) (NotDetected) B. pertussis DNA (PCR) (NotDetected) B.parapertussis DNA PCR (NotDetected) C. pneumoniae DNA (PCR) (NotDetected) Coronavirus OC43 (PCR) (NotDetected) Coronavirus HKU1 (PCR) (NotDetected) Coronavirus 229E (PCR) (NotDetected) Coronavirus NL63 (PCR) (NotDetected) Human Metapneumovir PCR (NotDetected) Influenza Type A (PCR) (NotDetected) Influenza Type B (PCR) (NotDetected) M. pneumoniae (PCR) (NotDetected) Parainfluenza 1 (PCR) (NotDetected) Parainfluenza 2 (PCR) (NotDetected) Parainfluenza 3 (PCR) (NotDetected) Parainfluenza 4 (PCR) (NotDetected) RSV (PCR) (NotDetected) Entero/Rhino (PCR) (NotDetected) 06/10/19 06/10/19 06/10/19 Range/Units 08:27 08:37 08:58 WBC (4.8-10.8) K/uL RBC (4.7-6.1) M/uL Hgb (14.0-18.0) g/dL POC Hgb 13.6 L 12.9 L (14.0-18.0) g/dl Hct (42-52) % POC Hct 40 L 38 L (42-52) % MCV (80-100) fL MCH (25-34) pg MCHC (32-36) g/dL RDW Std Deviation (36.4-46.3) fL RDW Coeff of Garret (11.5-14.5) % Plt Count (130-400) K/uL MPV (7.4-10.4) fL Immature Gran % (Auto) % Neut % (Auto) % Lymph % (Auto) % Surry % (Auto) % Eos % (Auto) % Baso % (Auto) % Immature Gran # (Auto) (0.00-0.02) K/uL Neut # (Auto) (1.4-6.5) K/uL Lymph # (Auto) (1.2-3.4) K/uL Surry # (Auto) (0.11-0.59) K/uL Eos # (Auto) (0-0.5) K/uL Baso # (Auto) (0-0.2) K/uL Blood Smear Review PT (9.0-12.0) Seconds INR (0.9-1.1) APTT (21.0-31.0) Seconds PTT Ratio Activ Coag Time Kaolin 246 H (94-140) SECONDS POC pH 7.24 L 7.23 L (7.35-7.45) POC pCO2 62 H 60 H (35-46) mmHg POC pO2 < 32 L 36 L (80-95) mmHg POC HCO3 27 H 25 H (19-24) jerri/L POC Total CO2 29 27 (24-31) mmol/L POC Base Excess -1.0 -3.0 (-9-1.8) jerri/L ABG pH (7.35-7.45) ABG pCO2 (35-46) mmHg ABG pO2 (80-95) mmHg ABG HCO3 (19-24) mmol/L ABG O2 Saturation (90-95) % ABG Base Excess (-9-1.8) mEq/L Leonardo Test (Pos) VBG pH (7.36-7.41) Barometric Pressure mm/Hg Oxygen Given POC Sodium 140 141 (135-144) mmol/L Sodium (136-145) mmol/L POC Potassium 3.4 3.4 (3.3-5.0) mmol/L Potassium (3.5-5.1) mmol/L Chloride (98-107) mmol/L Carbon Dioxide (21-32) mmol/L Anion Gap (3-11) BUN (7-18) mg/dl Creatinine (0.6-1.4) mg/dl Est Cr Clr Drug Dosing Est GFR ( Amer) Est GFR (Non-Af Amer) BUN/Creatinine Ratio (10-20) Glucose (70-99) mg/dl Lactate (0.4-2.0) mmol/L Calcium (8.5-10.1) mg/dl Phosphorus (2.5-4.9) mg/dl Magnesium (1.8-2.4) mg/dl Total Bilirubin (0.2-1) mg/dl AST (15-37) U/L ALT (12-78) U/L Alkaline Phosphatase (45-117) U/L Troponin I (0-0.045) ng/ml Total Protein (6.4-8.2) gm/dl Albumin (3.4-5.0) gm/dl Globulin (2.5-4.0) gm/dl Albumin/Globulin Ratio (0.9-2) Beta-Hydroxybutyric Acd (0.2-2.81) mg/dl Procalcitonin (0-0.5) ng/ml Adenovirus (PCR) (NotDetected) B. pertussis DNA (PCR) (NotDetected) B.parapertussis DNA PCR (NotDetected) C. pneumoniae DNA (PCR) (NotDetected) Coronavirus OC43 (PCR) (NotDetected) Coronavirus HKU1 (PCR) (NotDetected) Coronavirus 229E (PCR) (NotDetected) Coronavirus NL63 (PCR) (NotDetected) Human Metapneumovir PCR (NotDetected) Influenza Type A (PCR) (NotDetected) Influenza Type B (PCR) (NotDetected) M. pneumoniae (PCR) (NotDetected) Parainfluenza 1 (PCR) (NotDetected) Parainfluenza 2 (PCR) (NotDetected) Parainfluenza 3 (PCR) (NotDetected) Parainfluenza 4 (PCR) (NotDetected) RSV (PCR) (NotDetected) Entero/Rhino (PCR) (NotDetected) 06/10/19 06/10/19 06/10/19 Range/Units 09:35 10:06 10:40 WBC (4.8-10.8) K/uL RBC (4.7-6.1) M/uL Hgb (14.0-18.0) g/dL POC Hgb 13.6 L (14.0-18.0) g/dl Hct (42-52) % POC Hct 40 L (42-52) % MCV (80-100) fL MCH (25-34) pg MCHC (32-36) g/dL RDW Std Deviation (36.4-46.3) fL RDW Coeff of Garret (11.5-14.5) % Plt Count (130-400) K/uL MPV (7.4-10.4) fL Immature Gran % (Auto) % Neut % (Auto) % Lymph % (Auto) % Surry % (Auto) % Eos % (Auto) % Baso % (Auto) % Immature Gran # (Auto) (0.00-0.02) K/uL Neut # (Auto) (1.4-6.5) K/uL Lymph # (Auto) (1.2-3.4) K/uL Surry # (Auto) (0.11-0.59) K/uL Eos # (Auto) (0-0.5) K/uL Baso # (Auto) (0-0.2) K/uL Blood Smear Review PT (9.0-12.0) Seconds INR (0.9-1.1) APTT (21.0-31.0) Seconds PTT Ratio Activ Coag Time Kaolin 340 H 285 H (94-140) SECONDS POC pH 7.23 L (7.35-7.45) POC pCO2 57 H (35-46) mmHg POC pO2 40 L (80-95) mmHg POC HCO3 24 (19-24) jerri/L POC Total CO2 26 (24-31) mmol/L POC Base Excess -4.0 (-9-1.8) jerri/L ABG pH (7.35-7.45) ABG pCO2 (35-46) mmHg ABG pO2 (80-95) mmHg ABG HCO3 (19-24) mmol/L ABG O2 Saturation (90-95) % ABG Base Excess (-9-1.8) mEq/L Leonardo Test (Pos) VBG pH (7.36-7.41) Barometric Pressure mm/Hg Oxygen Given POC Sodium 142 (135-144) mmol/L Sodium (136-145) mmol/L POC Potassium 3.6 (3.3-5.0) mmol/L Potassium (3.5-5.1) mmol/L Chloride (98-107) mmol/L Carbon Dioxide (21-32) mmol/L Anion Gap (3-11) BUN (7-18) mg/dl Creatinine (0.6-1.4) mg/dl Est Cr Clr Drug Dosing Est GFR ( Amer) Est GFR (Non-Af Amer) BUN/Creatinine Ratio (10-20) Glucose (70-99) mg/dl Lactate (0.4-2.0) mmol/L Calcium (8.5-10.1) mg/dl Phosphorus (2.5-4.9) mg/dl Magnesium (1.8-2.4) mg/dl Total Bilirubin (0.2-1) mg/dl AST (15-37) U/L ALT (12-78) U/L Alkaline Phosphatase (45-117) U/L Troponin I (0-0.045) ng/ml Total Protein (6.4-8.2) gm/dl Albumin (3.4-5.0) gm/dl Globulin (2.5-4.0) gm/dl Albumin/Globulin Ratio (0.9-2) Beta-Hydroxybutyric Acd (0.2-2.81) mg/dl Procalcitonin (0-0.5) ng/ml Adenovirus (PCR) (NotDetected) B. pertussis DNA (PCR) (NotDetected) B.parapertussis DNA PCR (NotDetected) C. pneumoniae DNA (PCR) (NotDetected) Coronavirus OC43 (PCR) (NotDetected) Coronavirus HKU1 (PCR) (NotDetected) Coronavirus 229E (PCR) (NotDetected) Coronavirus NL63 (PCR) (NotDetected) Human Metapneumovir PCR (NotDetected) Influenza Type A (PCR) (NotDetected) Influenza Type B (PCR) (NotDetected) M. pneumoniae (PCR) (NotDetected) Parainfluenza 1 (PCR) (NotDetected) Parainfluenza 2 (PCR) (NotDetected) Parainfluenza 3 (PCR) (NotDetected) Parainfluenza 4 (PCR) (NotDetected) RSV (PCR) (NotDetected) Entero/Rhino (PCR) (NotDetected) Imaging Data Radiologist's Impression: [facility], [place] [phone] XRay Report Patient: JACKSON COX Admit Date: 06/10/19 MR#: [id number] Address1: [address] [facility] Acct ID:[id number] Address2: Date: [address] [facility] Zip: [place] [address] Age: 64 Location: ED Sex: M Room/Bed: Att Phy: Diagnosis: COUGH,SOB Sanaz Phy: PCP,NO Service Date: 06/10/19 Fam Phy: Interpreting Phy: Alvino Barfield MD Admit Phy: Ordering Phy: Usman Zamorano MD cc: ~ XR chest 1V portable CLINICAL HISTORY: Sepsis COMPARISON STUDY: No previous studies for comparison. FINDINGS: The tip of the endotracheal tube is 5.6 cm above the tamiko. Tip of nasogastric tube is below the lower aspect of this image but at least within the body of the stomach. Tip of right internal jugular central line projects over the distal SVC. There is no pneumothorax. No pleural effusion is identified. Interstitial thickening and extensive bilateral airspace opacities are present. IMPRESSION: 1. Satisfactory positioning of lines and tubes. 2. Interstitial thickening and extensive bilateral airspace opacities which favor an infectious etiology. Pulmonary edema could appear similar but is considered less likely. ACT 112: Negative or not required by law. Electronically signed by: Alvino Barfield M.D. 06/10/2019 6:23 AM Dictated: 06/10/19620 Transcribed: 06/10/19620 ECG Data Attestation: I personally reviewed and interpreted this ECG as follows: Indication: + SOB/dyspnea Rate (beats per minute): 111 Rhythm: + sinus tachycardia ECG ST segments: + ST depression (Anterior) and + ST elevation (Inferior) Comparison ECG Date: no prior available Blood Pressure Blood Pressure Findings: Elevated blood pressure Blood Pressure Disposition: elevated BP felt to be situational MDM Narrative This is a 64-year-old male who arrives to the emergency department in acute distress. The patient is unable to communicate what is wrong however he is hypoxic and gasping for air. Based on this film as well as his physical examination I recommended intubation. The patient gave a verbal okay for this. Due to the current pandemic the patient was intubated with isolation precautions as above. He was placed in a negative pressure room. Chest x-ray is concerning for diffuse pneumonia however his EKG and his troponin are worrisome for an acute DC. I did discuss the case with the on-call senior control systems engineer as well as hospitalist as well as on-call sociology adjunct instructor. [facility] agreed to take the patient to the [facility]. In the meantime the patient was pancultured and started on Zosyn Levaquin and vancomycin. His lactate was found to be grossly e levated. Impression & Plan Acute respiratory failure with hypoxia and hypercarbia, Multifocal pneumonia Discharge Plan Visit Data *Final* Discharge Date/Time: 06/10/19 07:06 Chief Complaint: Shortness of Breath/Dyspnea Stated Complaint: COUGH,SOB ED Provider: Usman Zamorano Discharge Problem: Acute respiratory failure with hypoxia and hypercarbia, Multifocal pneumonia Patient Disposition: Still a Patient Discharge Instructions Interventions: ED Discharge Assessment Last Done: 06/10/19 07:06
--- NOTE | 2019-06-10 07:20 | Cardiology Consultation ---
Date of Consultation June 10, 2019 Assessment & Plan (1) Respiratory failure: Patient here with acute respiratory failure requiring intubation in the setting diffuse bilateral airspace opacities, possible COVID-19 infection. ECG suggestive of lateral STEMI/acute coronary syndrome. Plan for diagnostic catheterization and possible PCI. Heparin to be administered upon arrival to [facility]. Further recommendations pending findings of angiography. History of Present Illness History of Present Illness 64-year-old man who presented to ED with acute respiratory distress/failure requiring emergent intubation. Was unable to communicate chest pain prior to intubation. Initial EKG showed lateral ST elevations with diffuse ST depressions anteriorly. Initial troponin 5.4. Chest x-ray with diffuse bilateral airspace opacities. Patient in isolation for suspected Covid-19. Patient History Social History Feels Safe at Home: Yes Smoking Status: Never smoker Review of Systems Review of Systems: Unobtainable due to endotracheal tube Physical Exam Physical Exam: General: Intubated sedated HEENT: Sclerae anicteric Cardiac: Regular Abdomen: Soft, nondistended Extremities: Warm, well perfused, no edema. 2+ radial pulses Skin: No rashes or lesions. Neuro: Pupils reactive Results & Data ([facility]) Vital Signs (Past 12 Hours) Vital Signs Pulse Resp BP Pulse Ox 06/10/19 07:06 112 H 20 185/115 H 95 06/10/19 06:48 100 H 26 H 151/118 H 98 06/10/19 06:45 100 H 26 H 151/113 H 98 06/10/19 06:31 106 H 27 H 99 06/10/19 06:30 105 H 24 146/114 H 99 06/10/19 06:15 111 H 20 166/124 H 99 06/10/19 06:01 115 H 20 99 06/10/19 06:00 117 H 20 176/127 H 99 06/10/19 05:45 115 H 20 167/122 H 99 06/10/19 05:31 123 H 97 06/10/19 05:30 123 H 23 168/122 H 99 06/10/19 05:15 114 H 20 159/119 H 97 06/10/19 05:00 62 15 145/86 H 95 06/10/19 04:58 49 L 16 119/75 88 L 06/10/19 04:55 67 22 97 06/10/19 04:49 48 L 24 139/61 86 L 06/10/19 04:30 41 L 19 75 L 06/10/19 04:29 56 L 31 H 75 L 06/10/19 04:27 54 L 29 H 77 L 06/10/19 04:21 50 L 30 H 122/80 71 L PG Care Time/CCT Total # of Minutes Spent Total Time Spent with Patient: Total time spent is greater than 50% in coordination of care (as documented) at patient's floor/unit and/or counseling patient: Coding Level of Care Code 11319 Inpt Consult Level 5 Diagnoses Respiratory failure J96.90
[2019-06-10] MEDS ORDERED: ATROPINE SULFATE 0.1 MG/ML 10ML SYR IV ONE ×2 (07:28→11:42)
[2019-06-10] MEDS ORDERED: INSULIN ASPART 100 UNITS/ML 3 ML PEN SC SCH (07:30)
[2019-06-10] MEDS ORDERED: NOREPINEPHRINE BITARTRATE 1 MG/ML 4 ML VIAL (CATH LAB USE ONLY) ONE (07:35)
[2019-06-10] MEDS ORDERED: SODIUM BICARB 8.4% INJ 50 MEQ/50 ML SYR ONE (07:39)
[2019-06-10 07:40] LABS: Adenovirus PCR Not Detected (NotDetected); Bordetella parapertussis PCR Not Detected (NotDetected); Bordetella pertussis PCR Not Detected (NotDetected); Chlamydia pneumoniae PCR Not Detected (NotDetected); Coronavirus 229E PCR Not Detected (NotDetected); Coronavirus HKU1 PCR Not Detected (NotDetected); Coronavirus NL63 PCR Not Detected (NotDetected); Coronavirus OC43PCR Not Detected (NotDetected); Human Metapneumovirus PCR Not Detected (NotDetected); Influenza A PCR Not Detected (NotDetected); Influenza B PCR Not Detected (NotDetected); Mycoplasma pneumoniae PCR Not Detected (NotDetected); Parainfluenza Virus 1 PCR Not Detected (NotDetected); Parainfluenza Virus 2 PCR Not Detected (NotDetected); Parainfluenza Virus 3 PCR Not Detected (NotDetected); Parainfluenza Virus 4 PCR Not Detected (NotDetected); Respiratory Syncytial VirusPCR Not Detected (NotDetected); Rhinovirus/Enterovirus PCR Not Detected (NotDetected)
[2019-06-10] MEDS ORDERED: PHARMACY GLYCEMIC MGMT CONSULT PRN (07:54)
--- NOTE | 2019-06-10 07:57 | Communication Note ---
Date of Service: June 10, 2019 Patient history is limited as he was intubated prior to my evaluation. Reported history obtained from Viktoriya Jj was that the patient experienced cough and shortness of breath within 24 hours preceding and got acutely worse. Yesterday the patient's roommate requested he received COVID testing. Per my understanding this did not occur. He presented acutely to the emergency department profoundly hypoxic having significant chest pain. He was intubated immediately on arrival, central line and radial art line were placed emergently. EKG demonstrated ST changes and the patient had an elevated troponin. During cardiac cath he was found to have significant LAD lesion requiring multiple stents. Additionally the patient's blood gas demonstrated a PaO2 greater than 300 with 20 PEEP and 100%, if this was COVID related diffuse capillary leak syndrome his oxygenation would not have responded as aggressively to ventilatory settings. I discussed this with Dr. Ni with COVID triage and in agreement that this likely represents cardiac etiology of respiratory failure and therefore we will discontinue airborne precautions and discontinue COVID testing at this time. Update: 93 I have obtained additional history from the patient's daughter Chandrika Rodriguez, she lives in [place] her cell phone is [phone] she is a naturaopath. Socially the patient has no tobacco use, rare social alcohol use no known IV drug abuse. He is and Chandrika is his only child. She does not have a healthcare power of document review attorney or living well. He does not take any medications and he has no past medical history nor surgical history that Chandrika is aware of. Chandrika reports that she spoke to her father 2 days ago via video chat and he had no symptoms of any sort. Specifically she reported he denied fever and cough. He has not been to work in 2 weeks given the business shutdown, he has been avoiding public transportation in the last 2 weeks only riding a bike. He has not traveled out of the state nor traveled out of the country and has largely stayed at home. He does have roommates none of whom are reported to have symptoms nor reported positive COVID lab testing. She specifically reports these symptoms of shortness of breath were sudden in onset, he called her at 3 AM and was unable to reach her. Since last update the patient has had intervention done to the circumflex artery and appears to be 100% pacer dependent, the pacer has lost capture several times appears to be positional in nature. His hemodynamics are largely marginal and he is requiring vasoactive medication for cardiovascular support. The vac press operator has elected to proceed with Impella placement for mechanical circulatory support. At this time I am attempting to facilitate transfer to a tertiary care facility. I have contacted [facility] and am in que to speak with a transfer nurse. Update [id number]. I spoke with [facility], Dr. Solis will be exce pting. We are attempting to secure flight transport via [facility]. I have updated the patient's daughter of condition and transfer. Coding Level of Care Code Critical Care 1st 30-74 mins Time Spent (min) 95 Comment I have personally spent 95 minutes of critical care time in the direct management of this patient. This is a life/limb threatening event. This includes time spent evaluating patient, direct bedside care, chart review, placing orders, interpretation of diagnostic studies, discussion with consultants, patient, and/or family members regarding treatment decisions, as well as other required patient management activities. This time is exclusive of all separately billable procedures, and teaching time and separate from and in addition to any other critical care service time.
[2019-06-10] MEDS ORDERED: PATIENT'S HEIGHT AND/OR WEIGHT NEEDED SCH (08:00)
[2019-06-10] MEDS ORDERED: DOBUTamine 500MG / 250ML D5W (CATH LAB USE ONLY) ONE (08:27)
--- NOTE | 2019-06-10 09:47 | History and Physical Report ---
DATE OF ADMISSION: 06/10/2019 CHIEF COMPLAINT: Acute shortness of breath. HISTORY OF PRESENT ILLNESS: A 64-year-old male patient presents with acute shortness of breath. The patient was alone and he was not able to give any history. He was saturating at 70% when he came in and when the ER physician was talking to him, he could not answer any questions and saturations were dropping down and bradycardic and code blue was called and also status post emergent intubation, status post right IJ line and A line and patient currently tachycardic tachycardic and hypothermic. Labs show white count of 13.1. ABGs, pH of 7.14, pCO2 60, pO2 of 321, on 100% oxygen and creatinine was 1.8, CO2 was 18, anion gap of 17, glucose of 464. Lactate 9.3, phosphorus 8.5, AST 223, ALT 107. Troponin I was 5.4. Procalcitonin 0.05. Influenza A and B was negative. Chest x-ray showed extensive bilateral airspace opacities, possible pulmonary edema versus infectious etiology. EKG showed ST elevations in inferior and lateral leads.Question of COVID infection. Heart alert was called and patient is going to [facility].As per cardiology to start on IV heparin when he goes to the [facility]. He received vancomycin and Levaquin in the ER. Later ER physician was able to call his daughter who lives in [place] and she told him that he lives with a roommate in [place] and he was coughing since yesterday and they want to come and get tested but last night his cough got worse and he also got acutely short of breath which brought him to the ER. At this time, could not get much history. ALLERGIES: Currently could not get any history. PAST MEDICAL AND PAST SURGICAL HISTORY: Unavailable at this time. HOME MEDICATIONS: Unavailable at this time. FAMILY HISTORY AND SOCIAL HISTORY: Unobtainable at this time. REVIEW OF SYMPTOMS: Unobtainable at this time. PHYSICAL EXAMINATION: GENERAL: The patient is intubated and sedated. HEENT: Head atraumatic. Eyes, no pallor, no icterus. NECK: No JVD, no neck masses, status post left IJ line. CARDIOVASCULAR: S1, S2 heard. Tachycardia. No murmurs. RESPIRATORY SYSTEM: Normal AP diameter. No accessory muscle use. Mild bibasilar crackles. No wheezing. ABDOMEN: Soft, bowel sounds present. No distention. CENTRAL NERVOUS SYSTEM: Status post intubated and sedated. EXTREMITIES: No edema, no erythema. LABORATORY DATA: WBC 13.1, hemoglobin 14.9, hematocrit 44.7, platelets 245. PT 10.6, INR 1, APTT 28.2. ABG pH of 7.14, pCO2 60, pO2 321, bicarbonate 20, oxygen 100%. Sodium 137, potassium 3.5, chloride 102, bicarbonate 18, anion gap 17, BUN 22, creatinine 1.8, serum glucose 464. Lactate 9.3, calcium 7.6, phosphorus 8.5, magnesium 2.7, total bilirubin 0.5, AST 223, ALT 107, alkaline phosphatase 71. Troponin I was 5.4. Beta hydroxybutyric acid 2.45. Procalcitonin 0.05. Influenza A and B negative. IMAGING: Chest x-ray, interstitial thickening and extensive bilateral airspace opacities which favor an infectious etiology. Pulmonary edema could appear similar, but is considered less likely. EKG: Sinus tachycardia with ST elevation in inferior and lateral leads, heart rate of 111. ASSESSMENT AND PLAN: This is a 64-year-old male patient with unobtainable past medical history presented with acute shortness of breath and found to be acutely hypoxic and bradycardic in the ER and patient was not able to answer any questions and he was alone and was emergently intubated.. 1. Acute hypoxic respiratory failure, suspected COVID infection, acute ST elevated myocardial infarction. The patient was started on IV Levaquin and IV vancomycin in the ER which we will continue. Will Follow the biosphere results and follow the COVID results. Isolation precautions, supportive care and vent management as per critical care. 2. Acute ST elevated myocardial infarction, in setting of suspicion of COVID infection. Heart alert was called. The patient is going to [facility] to start IV heparin in [facility]. We will follow the results. Cardiology on on board. Medication optimization as per Cardiology. 3. Troponins are elevated at 5. From above We will trend the troponins and follow echocardiogram. 4. Elevated anion gap metabolic acidosis and acute kidney injury secondary to above. Fluids as per critical care. Follow the repeat labs. 5. Elevated lactic acid of 9.3, lactic acidosis possibly from resp failure ,AL and or sepsis, but patient's blood pressure is okay for now. Iv abx as above. Will follow repeat lactic acids.Fluids as per critical care.Close monitor. 6. Elevated LFTs. We will follow the repeat labs. 7. Hyperglycemia, insulin as per hyperglycemia protocol. Closely monitor. 8. Deep venous thrombosis prophylaxis, IV heparin. 9. Disposition. Closely monitor in the ICU. 10. Code status. Level 1 full code for now. MTDD
[2019-06-10] MEDS ORDERED: PROPOFOL IV EMULSION 10 MG/ML 20 ML VIAL (CATH LAB USE ONLY) ONE (10:01)
[2019-06-10] MEDS ORDERED: PROPOFOL IV EMULSION 10 MG/ML 100 ML VIAL (CATH LAB USE ONLY) ONE (10:02)
[2019-06-10] MEDS ORDERED: TICAGRELOR 90 MG TAB PO ONE (10:04)
--- NOTE | 2019-06-10 11:07 | Cardiac Catheterization ---
ACC Data: Drop Hammer Setter Up Cardiac Status Clinical evaluation leading to the procedure CAD Presenation: STEMI Anginal Classification: CCS IV Heart Failure: No Cardiogenic Shock within 24 Hours: No Cardiac Arrest within 24 Hours: No Imaging Studies Past 6 Months: No Stress Studies Past 6 Months: No Diagnostic Physicians Name: Camilo Osborne MD Status: Emergency Closure Device Percutaneous Entry Location: Femoral Recommendations: PCI without planned CABG PCI Indication: Immediate PCI for STEMI First Noted: First EKG Reason For Delay in PCI:: covid19 Lesion Segment Name: proximal circumflex Culprit Artery: Yes Stenosis Prior to Rx (%): 100 Chronic Total Occlusion: No IVUS: No FFR: No Pre-Procedure PAYTON Flow: 0 Previously Treated Lesion: No Lesion Complexity: Non-High/Non-C Lesion Length (mm): 15 Thrombus Present: Yes Bifurcation Lesion: No Guidewire Across Lesion: No Lesion #2 Segment Name: mid LAD Culprit Artery: Yes Stenosis Prior to Rx (%): 95% Chronic Total Occlusion: No IVUS: No FFR: No Pre-Procedure PAYTON Flow: 2 Previously Treated Lesion: No Lesion Complexity: Non-High/Non-C Lesion Length (mm): 15 Thrombus Present: Yes Bifurcation Lesion: Yes Guidewire Across Lesion: Yes Stenosis Post-Procedure (%): 0 Post-Procedure PAYTON Flow: 3 Devices(s) Deployed: Yes Intraprocedure Events Significant Disection: No Perforation: No Cardiac Cath Procedure Full Procedure Date June 10, 2019 Pre-Procedure Diagnosis Pre-Procedure Diagnosis: STEMI AUC Score AUC Score: 9 Post-Procedure Diagnosis Post-Procedure Diagnosis: Severe CAD, Successful PCI and Elevated Intracardiac Pressures Procedure(s) Performed Procedure(s) Performed: Coronary Angiography, Left Heart Cath, Right Heart Cath, PTCA, Drug Eluting Stent, Temporary Pacemaker, Femoral Artery Angiography and Procedure (Impella) Laundry Housekeeper Camilo Osborne MD Partition Making Machine Operator(s) Mark Estimated Blood Loss Estimated Blood Loss: 20 Medication(s) Medication(s): Fentanyl, Heparin, Lidocaine 1%, Norepinephrine and Versed Medication(s): Dobutamine Ticagrelor Summary of Findings Indication: STEMI/Heart Alert Access: 6 Fr right IMPREGNATOR OPERATOR. 7 Fr right CFV. 6 Fr left CFV Catheters: EBU 3.5 guide, EBU 3.75 guide. Diagnostic JR4, pigtail Findings: LM -medium caliber, 20% distal LAD -medium caliber vessel, 95% focal stenosis after takeoff of medium caliber second diagonal, distal luminal irregularities, wraps around apex. Circumflex -large caliber vessel, dominant, acute 100% proximal occlusion RCA -nondominant, luminal irregularities -- PCI -- Antithrombotic therapy: Heparin, ticagrelor Procedure: Left main cannulated with EBU 3.5 guide BMW wire passed across lesion into distal vessel Proximal circumflex lesion predilated with 2.5 compliant balloon Dilated lesion stented with 3.0 x 18 mm Flako drug-eluting stent Stent post-dilated with 3.25 noncompliant balloon Stent well expanded with no apparent edge complications, PAYTON-3 flow distally with moderate to severe diffuse disease in distal segment prior to PDA BMW wire removed from circumflex and placed down LAD Mid LAD dilated with 2.5 balloon Mid LAD stented with 2.75 x 18 mm Flako drug-eluting stent Haziness at distal aspect of stent and second drug-eluting stent placed LAD (2.5 x 12 mm Flako) Post stent placement PAYTON-3 flow in distal vessel and diagonal. Stent well expanded. During procedure required escalating doses of norepinephrine, max 0.2 Right heart cath completed via right common femoral vein Initial PCW 18, PA sat of 34% Started on dobutamine in addition to norepinephrine. Persistently bradycardic with eventual complete heart block Temporary pacemaker placed via left common femoral vein In the setting of cardiogenic shock/complete heart block left main recannulated with EBU 3.75 guide, notable vasospasm and PAYTON 0-1 flow in distal circumflex/left PDA Lead Architect 50 wire placed into left PDA Distal circumflex after OM 2 to PDA dilated with 2.0 balloon PAYTON-3 flow reestablished in distal circumflex/PDA With dobutamine of 10, norepinephrine 0.2, temporary pacemaker repeat PA set up to 57% Mean arterial pressures remained 50 to 60s and pacing tenuous Decision to place Impella CP device for cardiogenic shock and transfer to tertiary center 6 Fr right IMPREGNATOR OPERATOR sheath removed and sequentially dilated prior to 14 Fr sheath placed Heparin to ACT greater than 250 Aortic valve crossed with pigtail Impella CP device placed across aortic valve P7 with cardiac output of 3.4 Improved hemodynamics with mean arterial pressures in the 90s, repeat PA sat 65% Attempted to wean dobutamine, norepinephrine with impella in place. With dobutamine off mean pressures down to 60s with flat arterial waveform/pulse pressure Dobutamine restarted with improved hemodynamics. Summary: 1. Acute lateral STEMI 2. 100% acute occlusion in dominant proximal circumflex 3. Severe diffuse disease and distal circumflex 4. 95% acute appearing mid LAD stenosis 5. Cardiogenic shock 6. Complete heart block 7. Successful PCI of proximal circumflex with single drug-eluting stent (3.0 x 18 mm Flako; postdilated with 3.25 NC). 8. Successful PCI of mid LAD with 2 overlapping drug-eluting stents (2.75 x 18, 2.5 x 12 mm Flako). 9. Successful angioplasty of diffuse distal circumflex disease with 2.0 balloon 10. Temporary pacemaker placement 11. Successful Impella CP device placement Recommendations: Transfer to [facility] for continued management, hemodynamic support Loaded with ticagrelor 180 mg in Drop Hammer Setter Up Hemodynamics Rest Ao:: 100/62/80 Final Ao: 96/59/71 LV: 84/18 PA: 37/18/25 PW: 18 Recommendations Recommendations: PCI without planned CABG Specimens Specimens: None Radiation Exposure (mGy) 3408 Contrast (mls) 230 Fluids (cc crystalloids) Fluids (cc crystalloids): 800 Drains Drains: none Anesthesia propofol, fentanyl, versed Procedural Complication(s) None Disposition [facility] I attest to the content of the Intraoperative Record and any orders documented therein. Any exceptions are noted below. [facility] Card Cath Procedure Codes Cardiac Catheterization Procedure 1: Cardiovascular Cath Procedures: 69733 Coronaries & LHC (+/-LV) & RHC Therapeutic Services & Ancillary Proc Procedure 1: Cardiovascular Tx and Anc Procedures: 69664 Temp Pacer Insert Procedure 2: Cardiovascular Tx and Anc Procedures: 50801 Insertion of Percutaneous Ventricular Assist Device Moderate Sedation Procedure 1: Sedation/Anesthesia: 26732 Mod Sedation by the same physician;Init15 Min Child Age 5 & Up Procedure 2: Sedation/Anesthesia: 55853 Mod Sedation by the same physician; Ea [id number] Minutes Angioplasty Procedure 1: Cardiovascular Angioplasty Procedures: 15686 PTCA; ea addl branch of a major cor art RC LC LD Stenting Procedure 1: Cardiovascular Stent Procedures: 73410 Perc transluminal revascularization of acute sub/total occl, aMI Procedure 2: Cardiovascular Stent Procedures: 95882 Ea addl branch of a major coronary artery PG Care Time/CCT Total # of Minutes Spent Total Time Spent with Patient: Total time spent is greater than 50% in coordination of care (as documented) at patient's floor/unit and/or counseling patient:
[2019-06-10] MEDS ORDERED: SODIUM CHLORIDE 0.9% 10ML FLUSH IV ONE (11:42)
[2019-06-10 11:47] LABS: iSTAT Arterial Blood Gas HCO3 23 meg/L (19-24); iSTAT Arterial Blood Gas pCO2 47 mmHg (35-46); iSTAT Arterial Blood Gas pO2 54 mmHg (80-95); iSTAT Carbon Dioxide 25 mmol/L (24-31); iSTAT Hematocrit 40 % (42-52); iSTAT Hemoglobin 13.6 g/dl (14.0-18.0); iSTAT Potassium 3.3 mmol/L (3.3-5.0); iSTAT Sodium 141 mmol/L (135-144)
[2019-06-10 11:47] LABS: iSTAT Arterial Blood Gas HCO3 24 meg/L (19-24); iSTAT Arterial Blood Gas pCO2 57 mmHg (35-46); iSTAT Arterial Blood Gas pH 7.23 (7.35-7.45); iSTAT Arterial Blood Gas pO2 40 mmHg (80-95); iSTAT Carbon Dioxide 26 mmol/L (24-31); iSTAT Hematocrit 40 % (42-52); iSTAT Hemoglobin 13.6 g/dl (14.0-18.0); iSTAT Potassium 3.6 mmol/L (3.3-5.0); iSTAT Sodium 142 mmol/L (135-144)
[2019-06-10 11:47] LABS: iSTAT Arterial Blood Gas HCO3 22 meg/L (19-24); iSTAT Arterial Blood Gas pCO2 49 mmHg (35-46); iSTAT Arterial Blood Gas pH 7.27 (7.35-7.45); iSTAT Arterial Blood Gas pO2 263 mmHg (80-95); iSTAT Carbon Dioxide 24 mmol/L (24-31); iSTAT Hematocrit 45 % (42-52); iSTAT Hemoglobin 15.3 g/dl (14.0-18.0); iSTAT Sodium 140 mmol/L (135-144)
[2019-06-10 11:47] LABS: iSTAT Arterial Blood Gas HCO3 24 meg/L (19-24); iSTAT Arterial Blood Gas pCO2 53 mmHg (35-46); iSTAT Arterial Blood Gas pH 7.26 (7.35-7.45); iSTAT Arterial Blood Gas pO2 72 mmHg (80-95); iSTAT Carbon Dioxide 26 mmol/L (24-31); iSTAT Hematocrit 39 % (42-52); iSTAT Hemoglobin 13.3 g/dl (14.0-18.0); iSTAT Potassium 2.9 mmol/L (3.3-5.0); iSTAT Sodium 138 mmol/L (135-144)
--- NOTE | 2019-06-10 14:49 | Electrocardiogram Report ---
Test Reason : Blood Pressure : / mmHG Vent. Rate : 111 BPM Atrial Rate : 111 BPM P-R Int : 170 ms QRS Dur : 110 ms QT Int : 358 ms P-R-T Axes : 079 070 065 degrees QTc Int : [address] elevation consider lateral injury or acute infarct ACUTE VT / STEMI Abnormal ECG No previous ECGs available Confirmed by Jas Shea ([id number]) on 06/10/2019 2:48:49 PM Referred By: REFERRED SELF Confirmed By:Jas Shea
[2019-06-10 15:56] LABS: iSTAT Arterial Blood Gas HCO3 25 meg/L (19-24); iSTAT Arterial Blood Gas pCO2 60 mmHg (35-46); iSTAT Arterial Blood Gas pH 7.23 (7.35-7.45); iSTAT Arterial Blood Gas pO2 36 mmHg (80-95); iSTAT Carbon Dioxide 27 mmol/L (24-31); iSTAT Hematocrit 38 % (42-52); iSTAT Hemoglobin 12.9 g/dl (14.0-18.0); iSTAT Potassium 3.4 mmol/L (3.3-5.0); iSTAT Sodium 141 mmol/L (135-144)
[2019-06-10 15:56] LABS: iSTAT Arterial Blood Gas HCO3 27 meg/L (19-24); iSTAT Arterial Blood Gas pCO2 62 mmHg (35-46); iSTAT Arterial Blood Gas pH 7.24 (7.35-7.45); iSTAT Arterial Blood Gas pO2 < 32 mmHg (80-95); iSTAT Carbon Dioxide 29 mmol/L (24-31); iSTAT Hematocrit 40 % (42-52); iSTAT Hemoglobin 13.6 g/dl (14.0-18.0); iSTAT Potassium 3.4 mmol/L (3.3-5.0); iSTAT Sodium 140 mmol/L (135-144)
[2019-06-13 15:14] LABS: COVID-19 Patient Symptomatic? YES; PAN-SARS Coronavirus RNA NEGATIVE (NEGATIVE); SARS CoV2 RNA (COVID-19) NEGATIVE (NEGATIVE); SARS Coronavirus RNA Source NASOPHARYNGEAL
--- NOTE | 2019-07-01 14:33 | Discharge Summary ---
Date of Service Date of Admission: 06/10/19 Date of Discharge: 06/10/19 Admission HPI Per Admitting Provider A 64-year-old male patient presents with acute shortness of breath. The patient was alone and he was not able to give any history. He was saturating at 70% when he came in and when the ER physician was talking to him, he could not answer any questions and saturations were dropping down and bradycardic and code blue was called and also status post emergent intubation, status post right IJ line and A line and patient currently tachycardic tachycardic and hypothermic. Labs show white count of 13.1. ABGs, pH of 7.14, pCO2 60, pO2 of 321, on 100% oxygen and creatinine was 1.8, CO2 was 18, anion gap of 17, glucose of 464. Lactate 9.3, phosphorus 8.5, AST 223, ALT 107. Troponin I was 5.4. Procalcitonin 0.05. Influenza A and B was negative. Chest x-ray showed extensive bilateral airspace opacities, possible pulmonary edema versus infectious etiology. EKG showed ST elevations in inferior and lateral leads.Question of COVID infection. Heart alert was called and patient is going to chemistry lab instructor.As per cardiology to start on IV heparin when he goes to the chemistry lab instructor. He received vancomycin and Levaquin in the ER. Later ER physician was able to call his daughter who lives in [place] and she told him that he lives with a roommate in [place] and he was coughing since yesterday and they want to come and get tested but last night his cough got worse and he also got acutely short of breath which brought him to the ER. At this time, could not get much history. Principal Diagnosis ST-elevation myocardial infarction multi-vessel coronary artery disease congestive heart failure cardiogenic shock complete heart block acute hypoxic respiratory failure hyperglycemia hypokalemia Discharge Data Consultations 06/10/19 05:44 Consult Box Sealing Machine Catcher Stat ED Decision to Admit Stat 06/10/19 06:48 Consult Cardiology Stat Procedures Performed Operation Date: 06/10/19 06:45 Actual Procedures s Cath, Right and Left Heart - Jax Osborne MD s Impella Insertion - Jax Osborne MD s Ins/RemTemporary Transvenous Pacer - Jax Osborne MD p Aspiration/PCI w/FREDDY for Stemi - Jax Osborne MD s Cineradiography w/Routine Exam - Jax Osborne MD Ordered Studies 06/10/19 04:35 US point of care ultrasound Urgent 06/10/19 06:51 Cath Imgs for PACS use only Stat Hospital Course (1) Non-ST elevation (NSTEMI) myocardial infarction: 64 YO male who presented to ED with dyspnea. Markedly hypoxic in ED and required intubation. EKG showed sinus tachycardia with ST elevation laterally. WBC 13,100, Hgb 14.9. Troponin was 5.53. Random glucose was 464. Serum lactate was 9.3. Procalcitonin was 0.05. Chest x-ray showed bilateral interstitial densities- interstitial pneumonia vs CHF. Initial concerns included acute respiratory failure either to infection or pu lmonary edema or a combination of the two. Blood cultures were obtained and patient received broad-spectrum antibiotic therapy. [employer] respiratory panel was negative. SARS-CoV-2 was negative. Cardiology consultation obtained and patient taken to chemistry lab instructor. Found to have 100% acute proximal circumflex lesion and 95% mid-LAD lesion; PCI performed. PTCA of distal circumflex lesion also performed. During the procedure pt had cardiogenic shock requiring pressors and complete heart block. Temporary pacemaker was placed. Impella CP device placed. Patient was transferred to [facility] for further management because of his complicated course and need for tertiary care services. Total Time Total Time Spent Total Time Spent (In Minutes): 0 Discharge Plan Discharge Items Patient Disposition: Transfer Acute Care Hospital Reason For Visit: COUGH,SOB Follow-up/Referrals: PCP,NO [Primary Care Provider] - Stand-Alone Forms: [facility] Admission Data Admit Date/Time: 06/10/19 06:42 Attending Provider: Jax Osborne Admit Provider: Theo Trejo Primary Care Provider: PCP,NO Other Providers: Fabrice Chatman ; Tito Flowers Other Interventions: Discharge Summary Assessment (RN) Last Done: 06/10/19 14:13 DC Date/Time DO NOT enter until pt leaves facility: 06/10/19 11:43
== END 2019-06-10 11:43 | disposition short-term general hospital (02) | DRG 215 ==
LOC: EDBD → ED 04:18 → 1E 06:42 → CC 07:06